=== PATIENT | female | born 1980 | race African-American/Black ===

== ENCOUNTER 2017-12-31 03:22 | Emergency (ER) | payer OTHER ==
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
[2017-12-31] MEDS ORDERED: Lidocaine 1% 20 ML MDV INJECT ONE (03:33)
[2017-12-31] MEDS ORDERED: Diphtheria,Pertussis(Acell),Tetanus Vaccine 0.5 ML Syringe IM ONE (03:33)
[2017-12-31] MEDS ORDERED: Bacitracin Oint 1 GM U/D Packet TOP ONE (04:25)
[2017-12-31 04:35] LABS: CHLORIDE,CL 105 mmol/L (98-107); SODIUM,NA 145 mmol/L (136-145)
[2017-12-31] MEDS ORDERED: Pantoprazole 40 MG Vial IVPUSH ONE (05:02)
[2017-12-31] MEDS ORDERED: Sodium Chloride 0.9% 1,000 ML IV SCH (05:15)
[2017-12-31 05:26] VITALS: BP 104/66
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
== END 2017-12-31 06:40 | disposition other institution (70) ==
LOC: MW.ED 03:22
DX: S51.812A Laceration without foreign body of left forearm, initial encounter (principal); S00.83XA Contusion of other part of head, initial encounter; S00.81XA Abrasion of other part of head, initial encounter; F10.129 Alcohol abuse with intoxication, unspecified; Z91.040 Latex allergy status; Z88.8 Allergy status to other drugs, medicaments and biological substances; Z79.899 Other long term (current) drug therapy; Y90.8 Blood alcohol level of 240 mg/100 ml or more; X78.9XXA Intentional self-harm by unspecified sharp object, initial encounter
CPT/HCPCS: 12001; 36415; 70450; 70486; 71045; 80053; 80305; 81001; 81025; 84443; 84484; 85025; 90471; 90715; 93005; 96361; 96374; 99285; C9113; G0480; J7040; 99284

== ENCOUNTER 2018-01-12 15:28 | Emergency (ER) | payer OTHER ==
[2018-01-12 15:41] VITALS: BP 119/67
== END 2018-01-12 15:40 | disposition left against medical advice (07) ==
LOC: MW.ED 15:28
DX: Z53.21 Procedure and treatment not carried out due to patient leaving prior to being seen by health care provider (principal)

== ENCOUNTER 2022-01-05 13:41 | Emergency (ER) | payer OTHER ==
[2022-01-05 14:26] VITALS: BP 129/79
[2022-01-05] MEDS ORDERED: Dexamethasone 10 MG/ML SDV PO ONE (14:33)
[2022-01-05] MEDS ORDERED: Penicillin G Benzathine 1,200,000 Units/2 ML Syringe IM ONE (14:33)
[2022-01-05 15:07] VITALS: PULSE 86
== END 2022-01-05 15:03 | disposition home or self-care (01) ==
LOC: MW.ED 13:41
DX: J02.0 Streptococcal pharyngitis (principal); Z91.040 Latex allergy status; Z88.5 Allergy status to narcotic agent
CPT/HCPCS: 96372; 99282; J0561; J8540; 99281

== ENCOUNTER 2022-03-13 11:15 | Emergency (ER) | payer OTHER ==
[2022-03-13] MEDS ORDERED: Sodium Chloride 0.9% 1,000 ML IV ONE (11:18)
[2022-03-13] MEDS ORDERED: Aspirin 81 MG Tab.Chew PO ONE (11:18)
[2022-03-13] MEDS ORDERED: LORazepam 2 MG/ML SDV IVPUSH ONE (11:18)
[2022-03-13 11:59] LABS: POTASSIUM,K 3.9 mmol/L (3.5-5.1)
[2022-03-13 12:41] VITALS: BP 142/68; PULSE 90
== END 2022-03-13 12:40 | disposition home or self-care (01) ==
LOC: MW.ED 11:15
DX: R07.9 Chest pain, unspecified (principal); Z20.822 Contact with and (suspected) exposure to COVID-19; Z91.040 Latex allergy status; Z88.8 Allergy status to other drugs, medicaments and biological substances
CPT/HCPCS: 36415; 71045; 80053; 83735; 84439; 84443; 84484; 84703; 85025; 85379; 85610; 85730; 87635; 93005; 96361; 96374; 99285; A9270; J2060; J7030; U0002

== ENCOUNTER 2023-02-08 12:40 | Observation (INO) | payer OTHER ==
[2023-02-08] MEDS ORDERED: Morphine 10 MG/0.5 ML Oral Syringe PO ONE (13:23)
[2023-02-08] MEDS ORDERED: Acetaminophen 325 MG/10.15 ML ML PO ONE (13:23)
[2023-02-08] MEDS ORDERED: Ibuprofen Susp 100 MG/5 ML 10 ML UD Cup PO ONE (13:23)
[2023-02-08] MEDS ORDERED: Dexamethasone 10 MG/ML SDV PO ONE (13:23)
[2023-02-08] MEDS ORDERED: Lidocaine 4% Top Soln 50 ML Bottle MUCMEM ONE (16:43)
[2023-02-08] MEDS ORDERED: Lactated Ringers 1,000 ML IV SCH (17:30)
[2023-02-08 17:46] LABS: BASOPHILS PERCENT AUTO 0.1 % (0.0-1.5); EOSINOPHILS PERCENT AUTO 0.1 % (0.0-7.0); HEMATOCRIT 41.7 % (36.0-46.0); HEMOGLOBIN 14.8 g/dL (12.0-16.0); LYMPHOCYTES ABSOLUTE AUTO 0.5 K/uL (0.6-2.4); LYMPHOCYTES PERCENT AUTO 2.1 % (16.0-40.0); MEAN CORPUSCULAR HEMOGLOBIN 32.5 pg (27.0-32.0); MEAN CORPUSCULAR HGB CONC 35.5 g/dL (31.0-37.0); MEAN CORPUSCULAR VOLUME 91.6 fL (80.0-98.0); MONOCYTES ABSOLUTE AUTO 0.6 K/uL (0.0-0.8); MONOCYTES PERCENT AUTO 2.6 % (0.0-15.0); NEUTROPHILS ABSOLUTE AUTO 22.7 K/uL (1.4-5.7); NEUTROPHILS PERCENT AUTO 95.1 % (48.0-80.0); NRBC ABSOLUTE 0 K/uL; PLATELET COUNT,PLT 247 K/uL (150-400); RED BLOOD CELL COUNT 4.55 M/uL (4.30-5.90); WHITE BLOOD CELL COUNT,WBC 23.87 K/uL (4.0-11.0)
[2023-02-08] MEDS ORDERED: Ampicillin/Sulbactam Na 3 GM in Sodium Chloride 0.9% 50 ML IV ONE (17:52)
[2023-02-08 18:11] LABS: A/G RATIO 0.7 (0.9-1.6); ALBUMIN 3.2 g/dL (3.4-5.0); BILIRUBIN TOTAL 0.4 mg/dL (0.2-1.0); CALCIUM 8.8 mg/dL (8.5-10.1); CARBON DIOXIDE,CO2 27.3 mmol/L (21.0-32.0); CREATININE 0.7 mg/dL (0.6-1.0); EST CRCL DRUG DOSING (CG) 85.72 mL/min; POTASSIUM,K 3.4 mmol/L (3.5-5.1); PROTEIN TOTAL,TP 7.7 g/dL (6.4-8.2)
[2023-02-08] MEDS ORDERED: Iopamidol 755 MG/ML 500 ML Multipack Bottle IVPUSH ONE (18:46)
[2023-02-08] MEDS ORDERED: Acetaminophen 325 MG Tab PO PRN (18:58)
[2023-02-08] MEDS ORDERED: Ondansetron 4 MG/2 ML SDV IVPUSH PRN (19:05)
[2023-02-08] MEDS ORDERED: Ondansetron 4 MG Tab.DIS PO PRN (19:07)
[2023-02-08] MEDS ORDERED: HYDROmorphone 2 MG/ML Syringe IVPUSH PRN (19:07)
[2023-02-08] MEDS: NS + KCl 20mEq/L 1,000 ML IV SCH (19:55)
[2023-02-08] MEDS: Ketorolac 30 MG/ML SDV IVPUSH PRN (19:55)
[2023-02-08] MEDS: HYDROmorphone 1 MG/ML Syringe IVPUSH PRN (21:31)
[2023-02-09] MEDS: HYDROmorphone 1 MG/ML Syringe IVPUSH PRN ×5 (00:09→19:04)
[2023-02-09] MEDS: Ampicillin/Sulbactam Na 3 GM in Sodium Chloride 0.9% 100 ML IV SCH ×4 (01:54→20:17)
[2023-02-09] MEDS: Ketorolac 30 MG/ML SDV IVPUSH PRN ×4 (02:00→21:44)
[2023-02-09] MEDS ORDERED: Ampicillin/Sulbactam Na 3 GM in Sodium Chloride 0.9% 50 ML IV SCH (02:00)
[2023-02-09] MEDS: NS + KCl 20mEq/L 1,000 ML IV SCH ×3 (03:27→20:10)
[2023-02-09 05:50] LABS: HEMATOCRIT 38.8 % (36.0-46.0); HEMOGLOBIN 13.2 g/dL (12.0-16.0); MEAN CORPUSCULAR HEMOGLOBIN 31.2 pg (27.0-32.0); MEAN CORPUSCULAR VOLUME 91.7 fL (80.0-98.0); MEAN PLATELET VOLUME 9.1 fL (7.40-12.00); RED BLOOD CELL COUNT 4.23 M/uL (4.30-5.90); WHITE BLOOD CELL COUNT,WBC 22.49 K/uL (4.0-11.0)
[2023-02-09 06:21] LABS: CALCIUM 7.9 mg/dL (8.5-10.1); CARBON DIOXIDE,CO2 27.4 mmol/L (21.0-32.0); CREATININE 0.6 mg/dL (0.6-1.0); EST CRCL DRUG DOSING (CG) 100.01 mL/min; MAGNESIUM 1.6 mg/dL (1.8-2.4); POTASSIUM,K 3.8 mmol/L (3.5-5.1)
[2023-02-09] MEDS ORDERED: Magnesium Sulfate/Water 2 GM in Premix Bag 1 BAG IV ONE (08:09)
[2023-02-09] MEDS: Enoxaparin 40 MG/0.4 ML Syringe SUBCUT SCH (08:36)
[2023-02-09] MEDS ORDERED: methylPREDNISolone Sodium Succinate 40 MG/1 ML SDV IVPUSH ONE (10:13)
[2023-02-10] MEDS: HYDROmorphone 1 MG/ML Syringe IVPUSH PRN ×3 (00:18→07:51)
[2023-02-10] MEDS: Ampicillin/Sulbactam Na 3 GM in Sodium Chloride 0.9% 100 ML IV SCH ×2 (02:19→07:52)
[2023-02-10] MEDS: NS + KCl 20mEq/L 1,000 ML IV SCH (03:52)
[2023-02-10] MEDS: Ketorolac 30 MG/ML SDV IVPUSH PRN ×2 (03:53→10:06)
[2023-02-10 06:11] LABS: BASOPHILS PERCENT AUTO 0.1 % (0.0-1.5); EOSINOPHILS ABSOLUTE AUTO 0.1 K/uL (0.0-0.7); EOSINOPHILS PERCENT AUTO 0.4 % (0.0-7.0); HEMATOCRIT 35.1 % (36.0-46.0); HEMOGLOBIN 12.1 g/dL (12.0-16.0); LYMPHOCYTES ABSOLUTE AUTO 2.2 K/uL (0.6-2.4); LYMPHOCYTES PERCENT AUTO 13.5 % (16.0-40.0); MEAN CORPUSCULAR HEMOGLOBIN 31.5 pg (27.0-32.0); MEAN CORPUSCULAR HGB CONC 34.5 g/dL (31.0-37.0); MEAN CORPUSCULAR VOLUME 91.4 fL (80.0-98.0); MONOCYTES ABSOLUTE AUTO 0.7 K/uL (0.0-0.8); MONOCYTES PERCENT AUTO 4.4 % (0.0-15.0); NEUTROPHILS ABSOLUTE AUTO 13.2 K/uL (1.4-5.7); NEUTROPHILS PERCENT AUTO 81.6 % (48.0-80.0); NRBC ABSOLUTE 0 K/uL; NRBC PERCENT 0.2 /100WBC; PLATELET COUNT,PLT 261 K/uL (150-400); RED BLOOD CELL COUNT 3.84 M/uL (4.30-5.90); WHITE BLOOD CELL COUNT,WBC 16.24 K/uL (4.0-11.0)
[2023-02-10 06:40] LABS: CALCIUM 7.5 mg/dL (8.5-10.1); CARBON DIOXIDE,CO2 26.9 mmol/L (21.0-32.0); CREATININE 0.6 mg/dL (0.6-1.0); EST CRCL DRUG DOSING (CG) 100.01 mL/min; POTASSIUM,K 4.1 mmol/L (3.5-5.1)
[2023-02-10] MEDS: Enoxaparin 40 MG/0.4 ML Syringe SUBCUT SCH (10:06)
[2023-02-10 12:26] VITALS: BP 123/64; PULSE 98
== END 2023-02-10 12:50 | disposition home or self-care (01) ==
LOC: MW.ED 12:40 → MW.MS 17:35
PROVIDERS: ADMIT Internal Medicine; ATTEND Internal Medicine
DX: J02.9 Acute pharyngitis, unspecified (principal); K20.0 Eosinophilic esophagitis; K21.00 Gastro-esophageal reflux disease with esophagitis, without bleeding; F41.9 Anxiety disorder, unspecified; E66.9 Obesity, unspecified; E86.0 Dehydration; E87.6 Hypokalemia; D72.829 Elevated white blood cell count, unspecified; Z90.710 Acquired absence of both cervix and uterus; Z90.49 Acquired absence of other specified parts of digestive tract; Z87.891 Personal history of nicotine dependence; Z79.899 Other long term (current) drug therapy; Z88.8 Allergy status to other drugs, medicaments and biological substances; Z91.040 Latex allergy status; Z20.822 Contact with and (suspected) exposure to COVID-19; Z68.38 Body mass index [BMI] 38.0-38.9, adult
CPT/HCPCS: 36415; 70491; 70491-26; 80048; 80053; 83735; 85025; 85027; 86308; 87070; 87880-QW; 96361; 96365; 96366; 96368; 96372; 96374; 96375; 96376; 99283; 99284-25; A9270-GY; G0378; J0295; J1170; J1650; J1885; J2920; J3475; J3480; J3490; J7120; J8540; Q9967; U0002

== ENCOUNTER 2023-06-11 16:26 | Emergency (ER) | payer OTHER ==
[2023-06-11] MEDS ORDERED: methylPREDNISolone Sodium Succinate 125 MG/2 ML SDV IM ONE (17:44)
[2023-06-11] MEDS ORDERED: Amoxicillin 500 MG Cap PO ONE (17:44)
[2023-06-11] MEDS ORDERED: Acetaminophen/Codeine 120-12 MG/5 ML Soln 5 ML UD Cup PO ONE (17:44)
[2023-06-11 17:45] LABS: CORONAVIRUS COVID-19 NAA NEGATIVE (NEGATIVE); INFLUENZA A NAA NEGATIVE (NEGATIVE); INFLUENZA B NAA NEGATIVE (NEGATIVE)
[2023-06-11 18:28] VITALS: BP 139/96; PULSE 81
== END 2023-06-11 18:28 | disposition home or self-care (01) ==
LOC: MW.ED 16:26
DX: J02.8 Acute pharyngitis due to other specified organisms (principal); E66.9 Obesity, unspecified; Z68.38 Body mass index [BMI] 38.0-38.9, adult; Z88.8 Allergy status to other drugs, medicaments and biological substances; Z91.040 Latex allergy status; Z90.49 Acquired absence of other specified parts of digestive tract; Z90.710 Acquired absence of both cervix and uterus; Z20.822 Contact with and (suspected) exposure to COVID-19
CPT/HCPCS: 0240U; 87651; 96372; 99284; A9270; J2930; 99283

== ENCOUNTER 2024-01-13 05:43 | Emergency (ER) | payer OTHER ==
[2024-01-13 06:05] LABS: BILIRUBIN,URINE NEGATIVE (NEGATIVE); COLOR,URINE YELLOW; GLUCOSE,URINE NEGATIVE (NEGATIVE); KETONES,URINE NEGATIVE (NEGATIVE); LEUKOCYTE ESTERASE,URINE MODERATE (NEGATIVE); NITRITE,URINE POSITIVE (NEGATIVE); OCCULT BLOOD,URINE LARGE (NEGATIVE); PROTEIN,URINE 30 mg/dL (NEGATIVE); UROBILINOGEN,URINE 0.2 EU/dL (<2.0)
[2024-01-13 06:16] LABS: BASOPHILS ABSOLUTE AUTO 0.13 K/uL (0.00-0.20); BASOPHILS PERCENT AUTO 1.2 % (0.0-1.0); EOSINOPHILS ABSOLUTE AUTO 0.48 K/uL (0.00-0.45); EOSINOPHILS PERCENT AUTO 4.3 % (0.0-6.0); HEMATOCRIT 42.9 % (37.0-47.0); HEMOGLOBIN 15.5 g/dL (12.0-16.0); IMMATURE GRAN ABSOLUTE AUTO 0.03 K/uL (0.00-0.05); IMMATURE GRAN PERCENT AUTO 0.3 % (0.0-0.4); LYMPHOCYTES ABSOLUTE AUTO 3.25 K/uL (1.00-4.80); LYMPHOCYTES PERCENT AUTO 28.8 % (24.0-44.0); MEAN CORPUSCULAR HGB CONC 36.1 g/dL (32.0-36.0); MEAN CORPUSCULAR VOLUME 91.3 fL (83.0-99.0); MEAN PLATELET VOLUME 8.7 fL (9.4-12.3); MONOCYTES ABSOLUTE AUTO 0.64 K/uL (0.00-0.80); MONOCYTES PERCENT AUTO 5.7 % (0.0-8.0); NEUTROPHILS ABSOLUTE AUTO 6.74 K/uL (1.80-7.70); NEUTROPHILS PERCENT AUTO 59.7 % (41.0-71.0); PLATELET COUNT,PLT 326 K/uL (150-400); WHITE BLOOD CELL COUNT,WBC 11.27 K/uL (3.9-11.3)
[2024-01-13] MEDS: Sodium Chloride 0.9% 1,000 ML IV ONE (06:16)
[2024-01-13] MEDS: Sodium Chloride 0.9% 2.5 ML Syringe FLUSH PRN (06:16)
[2024-01-13] MEDS: Sodium Chloride 0.9% 10 ML Syringe FLUSH PRN (06:16)
[2024-01-13] MEDS: Ketorolac 30 MG/ML SDV IVPUSH ONE (06:16)
[2024-01-13 06:37] LABS: APPEARANCE,URINE HAZY; BACTERIA,URINE RARE (NEGATIVE); EPITHELIAL CELLS,URINE FEW (NONE-FEW)
[2024-01-13 07:15] LABS: A/G RATIO 0.9 (0.9-1.6); ALBUMIN 3.4 g/dL (3.4-5.0); BILIRUBIN TOTAL 0.3 mg/dL (0.2-1.0); CALCIUM 8.8 mg/dL (8.5-10.1); CARBON DIOXIDE,CO2 25.3 mmol/L (21.0-32.0); CREATININE 0.7 mg/dL (0.6-1.0); EST CRCL DRUG DOSING (CG) 84.84 mL/min; POTASSIUM,K 3.9 mmol/L (3.5-5.1); PROTEIN TOTAL,TP 7.3 g/dL (6.4-8.2)
[2024-01-13] MEDS: Iopamidol 755 MG/ML 500 ML Multipack Bottle IVPUSH ONE (07:31)
[2024-01-13] MEDS: cefTRIAXone 1 GM in Sodium Chloride 0.9% 50 ML IV ONE (08:15)
[2024-01-13 08:33] VITALS: BP 107/69; PULSE 81
== END 2024-01-13 08:44 | disposition home or self-care (01) ==
LOC: MW.ED 05:43
DX: N12 Tubulo-interstitial nephritis, not specified as acute or chronic (principal); Z91.040 Latex allergy status; Z88.8 Allergy status to other drugs, medicaments and biological substances; Z90.49 Acquired absence of other specified parts of digestive tract; Z90.710 Acquired absence of both cervix and uterus; Z75.8 Other problems related to medical facilities and other health care
CPT/HCPCS: 36415; 74177; 80053; 81001; 83690; 85025; 96365; 96375; 99284; J0696; J1885; J3490; J7030; Q9967

== ENCOUNTER 2024-01-18 08:08 | Emergency (ER) | payer OTHER ==
[2024-01-18 08:38] LABS: APPEARANCE,URINE CLEAR; BILIRUBIN,URINE NEGATIVE (NEGATIVE); COLOR,URINE YELLOW; GLUCOSE,URINE NEGATIVE (NEGATIVE); KETONES,URINE NEGATIVE (NEGATIVE); LEUKOCYTE ESTERASE,URINE NEGATIVE (NEGATIVE); NITRITE,URINE NEGATIVE (NEGATIVE); OCCULT BLOOD,URINE NEGATIVE (NEGATIVE); PROTEIN,URINE NEGATIVE (NEGATIVE); UROBILINOGEN,URINE 0.2 EU/dL (<2.0)
[2024-01-18] MEDS: Acetaminophen 500 MG Tab PO ONE (08:40)
[2024-01-18] MEDS: Ibuprofen 600 MG Tab PO ONE (08:40)
[2024-01-18 09:01] LABS: BASOPHILS ABSOLUTE AUTO 0.07 K/uL (0.00-0.20); BASOPHILS PERCENT AUTO 0.8 % (0.0-1.0); EOSINOPHILS ABSOLUTE AUTO 0.26 K/uL (0.00-0.45); EOSINOPHILS PERCENT AUTO 3.1 % (0.0-6.0); HEMATOCRIT 40.6 % (37.0-47.0); HEMOGLOBIN 14.1 g/dL (12.0-16.0); IMMATURE GRAN ABSOLUTE AUTO 0.03 K/uL (0.00-0.05); IMMATURE GRAN PERCENT AUTO 0.4 % (0.0-0.4); LYMPHOCYTES ABSOLUTE AUTO 2.11 K/uL (1.00-4.80); LYMPHOCYTES PERCENT AUTO 25.3 % (24.0-44.0); MEAN CORPUSCULAR HEMOGLOBIN 32.3 pg (28.0-32.0); MEAN CORPUSCULAR HGB CONC 34.7 g/dL (32.0-36.0); MEAN CORPUSCULAR VOLUME 92.9 fL (83.0-99.0); MEAN PLATELET VOLUME 8.8 fL (9.4-12.3); MONOCYTES ABSOLUTE AUTO 0.63 K/uL (0.00-0.80); MONOCYTES PERCENT AUTO 7.5 % (0.0-8.0); NEUTROPHILS ABSOLUTE AUTO 5.25 K/uL (1.80-7.70); NEUTROPHILS PERCENT AUTO 62.9 % (41.0-71.0); PLATELET COUNT,PLT 271 K/uL (150-400); RED BLOOD CELL COUNT 4.37 M/uL (4.10-5.30); WHITE BLOOD CELL COUNT,WBC 8.35 K/uL (3.9-11.3)
[2024-01-18 09:30] LABS: A/G RATIO 0.8 (0.9-1.6); ALBUMIN 3.2 g/dL (3.4-5.0); BILIRUBIN TOTAL 0.3 mg/dL (0.2-1.0); CALCIUM 8.7 mg/dL (8.5-10.1); CARBON DIOXIDE,CO2 27.5 mmol/L (21.0-32.0); CREATININE 0.6 mg/dL (0.6-1.0); EST CRCL DRUG DOSING (CG) 98.98 mL/min; POTASSIUM,K 4.2 mmol/L (3.5-5.1); PROTEIN TOTAL,TP 7.2 g/dL (6.4-8.2)
[2024-01-18 09:47] VITALS: BP 123/95; PULSE 73
== END 2024-01-18 09:45 | disposition home or self-care (01) ==
LOC: MW.ED 08:08
DX: K29.70 Gastritis, unspecified, without bleeding (principal); Z88.8 Allergy status to other drugs, medicaments and biological substances; Z91.040 Latex allergy status; Z86.19 Personal history of other infectious and parasitic diseases; Z86.16 Personal history of COVID-19; Z90.49 Acquired absence of other specified parts of digestive tract; Z75.8 Other problems related to medical facilities and other health care
CPT/HCPCS: 36415; 80053; 81003; 85025; 99284; A9270; 99283

== ENCOUNTER 2024-10-03 08:56 | Day surgery (SDC) | payer OTHER ==
[~2024-10-03 08:56] MED LIST: Lactated Ringers 1,000 ML IV SCH; Sodium Chloride 0.9% 10 ML Syringe FLUSH PRN; Sodium Chloride 0.9% 2.5 ML Syringe FLUSH PRN; Sodium Chloride 0.9% 20 ML SDV IV PRN
[2024-10-03] MEDS ORDERED: dexmedeTOMIDine HCl 200 MCG/2 ML SDV ONE (09:53)
[2024-10-03] MEDS ORDERED: Sodium Chloride 0.9% 20 ML ONE (09:53)
[2024-10-03] MEDS ORDERED: Ketamine HCL/NACL, ISO-OSM 50 MG/5 ML Syringe ONE (10:43)
[2024-10-03] MEDS ORDERED: propofoL 500 MG/50 ML 50 ML ONE (10:43)
[2024-10-03] MEDS ORDERED: Propofol 200 MG/20 ML SDV ONE (11:01)
[2024-10-03] MEDS ORDERED: Lidocaine 2% 11 ML Jelly Filled Syringe ONE ×2 (11:10)
[2024-10-03 12:04] VITALS: BP 104/57; PULSE 73
== END 2024-10-03 12:15 | disposition home or self-care (01) ==
LOC: MW.SDS 08:56
PROVIDERS: ATTEND Surgery
DX: K31.7 Polyp of stomach and duodenum (principal); K44.9 Diaphragmatic hernia without obstruction or gangrene; K60.2 Anal fissure, unspecified; K21.9 Gastro-esophageal reflux disease without esophagitis; F41.9 Anxiety disorder, unspecified; Z87.891 Personal history of nicotine dependence; Z79.899 Other long term (current) drug therapy; Z91.040 Latex allergy status
CPT/HCPCS: 43239; 45380; A9270; J0131; J2704; 00813; J3490

== ENCOUNTER 2024-11-23 10:48 | Inpatient (IN) | payer OTHER ==
[2024-11-23] MEDS ORDERED: Sodium Chloride 0.9% 2.5 ML Syringe FLUSH PRN (11:12)
[2024-11-23] MEDS ORDERED: Sodium Chloride 0.9% 20 ML SDV IV PRN (11:12)
[2024-11-23] MEDS ORDERED: Sodium Chloride 0.9% 10 ML Syringe FLUSH PRN (11:12)
[2024-11-23] MEDS: Sodium Chloride 0.9% 1,000 ML IV ONE ×3 (11:31→17:46)
[2024-11-23] MEDS: Ibuprofen 800 MG Tab PO ONE (11:31)
[2024-11-23 11:46] LABS: BASOPHILS ABSOLUTE AUTO 0.07 K/uL (0.00-0.20); BASOPHILS PERCENT AUTO 0.6 % (0.0-1.0); EOSINOPHILS ABSOLUTE AUTO 0.03 K/uL (0.00-0.45); EOSINOPHILS PERCENT AUTO 0.2 % (0.0-6.0); HEMATOCRIT 40.7 % (37.0-47.0); HEMOGLOBIN 14.4 g/dL (12.0-16.0); IMMATURE GRAN ABSOLUTE AUTO 0.05 K/uL (0.00-0.05); IMMATURE GRAN PERCENT AUTO 0.4 % (0.0-0.4); LYMPHOCYTES PERCENT AUTO 4.1 % (24.0-44.0); MEAN CORPUSCULAR HEMOGLOBIN 32.2 pg (28.0-32.0); MEAN CORPUSCULAR HGB CONC 35.4 g/dL (32.0-36.0); MEAN CORPUSCULAR VOLUME 91.1 fL (83.0-99.0); MEAN PLATELET VOLUME 9.1 fL (9.4-12.3); MONOCYTES ABSOLUTE AUTO 0.51 K/uL (0.00-0.80); MONOCYTES PERCENT AUTO 4.2 % (0.0-8.0); NEUTROPHILS ABSOLUTE AUTO 10.99 K/uL (1.80-7.70); NEUTROPHILS PERCENT AUTO 90.5 % (41.0-71.0); PLATELET COUNT,PLT 192 K/uL (150-400); RED BLOOD CELL COUNT 4.47 M/uL (4.10-5.30); WHITE BLOOD CELL COUNT,WBC 12.15 K/uL (3.9-11.3)
[2024-11-23 12:10] LABS: A/G RATIO 0.9 (0.9-1.6); ALBUMIN 3.5 g/dL (3.4-5.0); BILIRUBIN TOTAL 0.4 mg/dL (0.2-1.0); CALCIUM 8.6 mg/dL (8.5-10.1); CARBON DIOXIDE,CO2 27.1 mmol/L (21.0-32.0); CREATININE 0.8 mg/dL (0.6-1.0); EST CRCL DRUG DOSING (CG) 83.13 mL/min; MAGNESIUM 1.6 mg/dL (1.8-2.4); POTASSIUM,K 3.1 mmol/L (3.5-5.1); PROTEIN TOTAL,TP 7.5 g/dL (6.4-8.2)
[2024-11-23 12:13] LABS: LACTIC ACID 0.9 mmol/L (0.4-2.0)
[2024-11-23] MEDS ORDERED: Magnesium Sulfate (4.06 MEQ/ML) 5 GM/10 ML SDV IV ONE (12:30)
[2024-11-23] MEDS: cefTRIAXone 2 GM in Sodium Chloride 0.9% 100 ML IV ONE ×2 (12:33→14:13)
[2024-11-23] MEDS: Potassium Chloride 20 MEQ Tab.ER PO ONE (12:34)
[2024-11-23] MEDS: Magnesium Sulf/Wat 2 GM/50 mL 2 GM in Premix Bag 1 BAG IV ONE (13:01)
[2024-11-23] MEDS: Potassium Chloride 10 MEQ in Premix Bag 1 BAG IV SCH ×2 (13:01→17:48)
[2024-11-23] MEDS: Azithromycin 500 MG in Sodium Chloride 0.9% 250 ML IV ONE (13:02)
[2024-11-23] MEDS ORDERED: Oseltamivir 75 MG Cap PO SCH (13:15)
[2024-11-23] MEDS ORDERED: Ondansetron 4 MG/2 ML SDV IVPUSH PRN (13:34)
[2024-11-23] MEDS: Enoxaparin 40 MG/0.4 ML Syringe SUBCUT SCH ×2 (17:45→17:47)
[2024-11-23] MEDS: Oseltamivir 75 MG Cap PO ONE (17:47)
[2024-11-23] MEDS: Sodium Chloride 0.9% 1,000 ML IV SCH (20:40)
[2024-11-23] MEDS: Ibuprofen 400 MG Tab PO PRN (20:48)
[2024-11-23] MEDS: Albuterol 0.083% 2.5 MG/3 ML Neb Soln NEB PRN (21:33)
[2024-11-23] MEDS: oxyCODONE 5 MG Tab PO PRN (21:33)
[2024-11-24] MEDS: Acetaminophen 325 MG Tab PO PRN (00:45)
[2024-11-24 07:03] LABS: BASOPHILS ABSOLUTE AUTO 0.04 K/uL (0.00-0.20); BASOPHILS PERCENT AUTO 0.9 % (0.0-1.0); EOSINOPHILS ABSOLUTE AUTO 0.06 K/uL (0.00-0.45); EOSINOPHILS PERCENT AUTO 1.3 % (0.0-6.0); HEMATOCRIT 35.2 % (37.0-47.0); HEMOGLOBIN 12.1 g/dL (12.0-16.0); IMMATURE GRAN ABSOLUTE AUTO 0.01 K/uL (0.00-0.05); IMMATURE GRAN PERCENT AUTO 0.2 % (0.0-0.4); LYMPHOCYTES PERCENT AUTO 24.2 % (24.0-44.0); MEAN CORPUSCULAR HEMOGLOBIN 31.8 pg (28.0-32.0); MEAN CORPUSCULAR HGB CONC 34.4 g/dL (32.0-36.0); MEAN CORPUSCULAR VOLUME 92.6 fL (83.0-99.0); MEAN PLATELET VOLUME 9.4 fL (9.4-12.3); MONOCYTES ABSOLUTE AUTO 0.49 K/uL (0.00-0.80); MONOCYTES PERCENT AUTO 10.8 % (0.0-8.0); NEUTROPHILS ABSOLUTE AUTO 2.84 K/uL (1.80-7.70); NEUTROPHILS PERCENT AUTO 62.6 % (41.0-71.0); PLATELET COUNT,PLT 151 K/uL (150-400); WHITE BLOOD CELL COUNT,WBC 4.54 K/uL (3.9-11.3)
[2024-11-24 07:38] LABS: CALCIUM 7.5 mg/dL (8.5-10.1); CARBON DIOXIDE,CO2 25.8 mmol/L (21.0-32.0); CREATININE 0.6 mg/dL (0.6-1.0); EST CRCL DRUG DOSING (CG) 97.95 mL/min; MAGNESIUM 1.9 mg/dL (1.8-2.4); PHOSPHORUS 2.8 mg/dL (2.6-4.7); POTASSIUM,K 3.3 mmol/L (3.5-5.1)
[2024-11-24] MEDS: Oseltamivir 75 MG Cap PO SCH (09:10)
[2024-11-24] MEDS: Potassium Chloride 20 MEQ Tab.ER PO ONE (10:40)
[2024-11-24] MEDS: cefTRIAXone 2 GM in Sodium Chloride 0.9% 50 ML IV SCH (13:23)
[2024-11-24] MEDS: Azithromycin 500 MG in Sodium Chloride 0.9% 250 ML IV SCH (13:24)
[2024-11-24] MEDS: Codeine/guaiFENesin 10-100 MG/5 ML Syrup 5 ML Cup PO PRN (21:05)
[2024-11-25 06:48] LABS: BASOPHILS ABSOLUTE AUTO 0.03 K/uL (0.00-0.20); BASOPHILS PERCENT AUTO 0.8 % (0.0-1.0); EOSINOPHILS ABSOLUTE AUTO 0.16 K/uL (0.00-0.45); EOSINOPHILS PERCENT AUTO 4.3 % (0.0-6.0); HEMATOCRIT 36.7 % (37.0-47.0); HEMOGLOBIN 12.7 g/dL (12.0-16.0); IMMATURE GRAN ABSOLUTE AUTO 0.01 K/uL (0.00-0.05); IMMATURE GRAN PERCENT AUTO 0.3 % (0.0-0.4); LYMPHOCYTES ABSOLUTE AUTO 1.33 K/uL (1.00-4.80); MEAN CORPUSCULAR HEMOGLOBIN 31.9 pg (28.0-32.0); MEAN CORPUSCULAR HGB CONC 34.6 g/dL (32.0-36.0); MEAN CORPUSCULAR VOLUME 92.2 fL (83.0-99.0); MEAN PLATELET VOLUME 9.6 fL (9.4-12.3); MONOCYTES ABSOLUTE AUTO 0.37 K/uL (0.00-0.80); NEUTROPHILS ABSOLUTE AUTO 1.79 K/uL (1.80-7.70); NEUTROPHILS PERCENT AUTO 48.6 % (41.0-71.0); PLATELET COUNT,PLT 184 K/uL (150-400); RED BLOOD CELL COUNT 3.98 M/uL (4.10-5.30); WHITE BLOOD CELL COUNT,WBC 3.69 K/uL (3.9-11.3)
[2024-11-25 06:58] LABS: CALCIUM 8.1 mg/dL (8.5-10.1); CARBON DIOXIDE,CO2 24.4 mmol/L (21.0-32.0); CREATININE 0.6 mg/dL (0.6-1.0); EST CRCL DRUG DOSING (CG) 97.95 mL/min; POTASSIUM,K 3.4 mmol/L (3.5-5.1)
[2024-11-25] MEDS ORDERED: Sodium Chloride 0.9% 2.5 ML Syringe FLUSH PRN (10:12)
[2024-11-25] MEDS ORDERED: Sodium Chloride 0.9% 10 ML Syringe FLUSH PRN (10:12)
[2024-11-25] MEDS: cefTRIAXone 2 GM in Sodium Chloride 0.9% 50 ML IV ONE (11:24)
[2024-11-25] MEDS: Potassium Chloride 20 MEQ Tab.ER PO ONE (12:07)
[2024-11-25] MEDS: Azithromycin 250 MG Tab PO ONE (12:17)
[2024-11-25] MEDS: Potassium Chloride 10% 20 MEQ/15 ML Soln 15 ML UD Cup PO ONE (12:17)
[2024-11-25 13:16] VITALS: BP 161/101; PULSE 88
== END 2024-11-25 13:25 | disposition home or self-care (01) | DRG 871 ==
LOC: MW.ED 10:48 → MW.MS 12:37
PROVIDERS: ADMIT Internal Medicine; ATTEND Internal Medicine
DX: A41.9 Sepsis, unspecified organism (principal); J10.00 Influenza due to other identified influenza virus with unspecified type of pneumonia; J18.9 Pneumonia, unspecified organism; H54.7 Unspecified visual loss; K21.9 Gastro-esophageal reflux disease without esophagitis; M19.90 Unspecified osteoarthritis, unspecified site; M54.9 Dorsalgia, unspecified; G89.29 Other chronic pain; R65.20 Severe sepsis without septic shock; M79.7 Fibromyalgia; G43.909 Migraine, unspecified, not intractable, without status migrainosus; F41.9 Anxiety disorder, unspecified; F32.A Depression, unspecified; E86.0 Dehydration; Z79.899 Other long term (current) drug therapy; Z88.8 Allergy status to other drugs, medicaments and biological substances; Z90.710 Acquired absence of both cervix and uterus; Z90.49 Acquired absence of other specified parts of digestive tract
CPT/HCPCS: 36415; 71046; 71046-26; 80048; 80053; 83605; 83735; 84100; 84145; 85025; 86308; 87040; 87428-QW; 87651-QW; 96361; 96374; 99222; 99231; 99238; 99285-25; A9270-GY; J0456; J0696; J1650; J3475; J3480; J3490; J7030; J7050; J7613-GY

== ENCOUNTER 2025-04-19 18:43 | Emergency (ER) | payer OTHER ==
[2025-04-19 19:06] VITALS: BP 160/82; PULSE 118
[2025-04-19] MEDS: Amoxicillin/Clavulanate K 875-125 MG Tab PO ONE (19:36)
== END 2025-04-19 19:39 | disposition home or self-care (01) ==
LOC: MW.ED 18:43
DX: S61.451A Open bite of right hand, initial encounter (principal); S20.112A Abrasion of breast, left breast, initial encounter; Z90.49 Acquired absence of other specified parts of digestive tract; Z90.710 Acquired absence of both cervix and uterus; Z88.8 Allergy status to other drugs, medicaments and biological substances; Z91.040 Latex allergy status; Z91.048 Other nonmedicinal substance allergy status; Z79.899 Other long term (current) drug therapy; Z75.3 Unavailability and inaccessibility of health-care facilities; W55.01XA Bitten by cat, initial encounter
CPT/HCPCS: 99283; A9270

== ENCOUNTER 2025-06-14 19:54 | Emergency (ER) | payer OTHER ==
[2025-06-14 20:16] LABS: MEAN PLATELET VOLUME 8.7 fL (9.4-12.3); NRBC ABSOLUTE 0.00 K/uL (0.00-0.02); NRBC PERCENT 0.0 /100WBC (0.0-0.2); PLATELET COUNT,PLT 375 K/uL (150-400); RED BLOOD CELL COUNT 4.63 M/uL (4.10-5.30); WHITE BLOOD CELL COUNT,WBC 11.60 K/uL (3.9-11.3)
[2025-06-14] MEDS: Ondansetron 4 MG/2 ML SDV IVPUSH ONE (20:28)
[2025-06-14] MEDS: Ketorolac 30 MG/ML SDV IVPUSH ONE (20:28)
[2025-06-14 20:34] LABS: EOSINOPHILS ABSOLUTE MAN 0.58 K/uL (0.00-0.45); EOSINOPHILS PERCENT MAN 5 % (0-6); LYMPHOCYTES ABSOLUTE MAN 4.64 K/uL (1.00-4.80); LYMPHOCYTES PERCENT MAN 40 % (24-44); MONOCYTES ABSOLUTE MAN 0.46 K/uL (0.00-0.80); MONOCYTES PERCENT MAN 4 % (0-8); SEG NEUTROPHILS ABSOLUTE MAN 5.92 K/uL (1.80-7.70); SEG NEUTROPHILS PERCENT MAN 51 % (41-71)
[2025-06-14 20:39] LABS: A/G RATIO 1.0 (0.9-1.6); ALANINE AMINOTRANSFERASE,ALT 86 IU/L (14-63); ASPARTATE AMNIOTRANSFERASE,AST 46 IU/L (15-37); BILIRUBIN TOTAL 0.6 mg/dL (0.2-1.0); BLOOD UREA NITROGEN,BUN 19 mg/dL (7.0-18.0); CARBON DIOXIDE,CO2 25.5 mmol/L (21.0-32.0); CHLORIDE,CL 101 mmol/L (98-107); CREATININE 0.9 mg/dL (0.6-1.0); GLUCOSE RANDOM 142 mg/dL (74-106); POTASSIUM,K 3.9 mmol/L (3.5-5.1); PROTEIN TOTAL,TP 7.9 g/dL (6.4-8.2); SODIUM,NA 139 mmol/L (136-145)
[2025-06-14 20:44] LABS: ESTIMATED GFR 80 mL/min (>60)
[2025-06-14] MEDS: LORazepam 2 MG/ML SDV IVPUSH ONE (21:11)
[2025-06-14 22:42] VITALS: BP 131/88; PULSE 90
== END 2025-06-14 22:41 | disposition home or self-care (01) ==
LOC: MW.ED 19:54
DX: R07.9 Chest pain, unspecified (principal); F41.9 Anxiety disorder, unspecified; K21.9 Gastro-esophageal reflux disease without esophagitis; Z90.49 Acquired absence of other specified parts of digestive tract; Z90.710 Acquired absence of both cervix and uterus; Z88.8 Allergy status to other drugs, medicaments and biological substances; Z91.048 Other nonmedicinal substance allergy status; Z91.040 Latex allergy status; Z79.899 Other long term (current) drug therapy; Z75.3 Unavailability and inaccessibility of health-care facilities
CPT/HCPCS: 36415; 71045; 80053; 83880; 84484; 85025; 85379; 87426; 93005; 96361; 96374; 96375; 99285; J1885; J2060; J2405; J7030